=== PATIENT | female | born 1975 | race Caucasian/White ===

== ENCOUNTER 2018-08-31 18:56 | Emergency (ER) | payer BC ==
[~2018-08-31] VITALS: Ht 165.1 cm; Wt 90.0 kg
[~2018-08-31 18:56] MED LIST: ACETTAB3 OR; AMOXICILLIN875 MG OR; AUGMENTIN875TAB OR; CIPROFLOXACN500 MG PO; CITALOPRAM20 MG PO; CITALOPRAM40 MG PO; EPITOL200 MG OR; FIORICET OR; FLEXERIL OR; FLEXERIL10 MG PO; KETOROLAC60 MG/2 ML IJ; LORTAB5 PO; MEDDOSEPAK OR; MELOXICAM15 MG PO; NAPROSYN500 MG PO; NAPROXEN500 MG PO; NASONEX50 MCG/AC; PHENERGAN25 MG/ML IM; PHENTERMINE37.5 M1 OR; ROCEPHIN 1 GM1 GM PO; SILVADENE1 % EX; TORADOL IM; VENTOLIN HFA IN; ZPAK PO
[2018-08-31 19:45] LABS: HEMATOCRIT 35.6 % (37.0-47.0); IMMATURE GRANULOCYTES 0.3 % (0.0-5.0); MEAN CORPUSCULAR HGB 23.3 pG CALC (26.0-32.0); MEAN CORPUSCULAR HGB CONC 30.1 g/L CALC (32.0-36.0); NEUT# 4.84 thou/uL (2.00-7.15); RED BLOOD COUNT 4.59 mill/uL (4.20-5.60); RED CELL DISTRI WIDTH 15.9 % (11.5-15.5)
[2018-08-31 19:48] LABS: HEMOGLOBIN 10.7 g/dl (12.0-16.0); MEAN CELL VOLUME 77.6 fL CALC (80.0-100.0)
[2018-08-31 19:49] LABS: URINE BILIRUBIN - DIPSTICK NEGATIVE (NEGATIVE); URINE BLOOD DIPSTICK SMALL (NEGATIVE); URINE COLOR YELLOW; URINE GLUCOSE - DIPSTICK NEGATIVE (NEGATIVE); URINE KETONE NEGATIVE (NEGATIVE); URINE LEUK ESTERASE NEGATIVE (NEGATIVE); URINE NITRITE - DIPSTICK NEGATIVE (Negative); URINE PROTEIN - DIPSTICK NEGATIVE (NEG-TRACE); URINE UROBILINOGEN - DIPSTICK 0.2 E.U./dL (0.2)
[2018-08-31 19:51] LABS: COCAINE NEGATIVE (NEGATIVE); METHADONE NEGATIVE (NEGATIVE); TETRAHYDROCANNABIONOL NEGATIVE (NEGATIVE)
[2018-08-31 19:52] LABS: BARBITURATES NEGATIVE (NEGATIVE); OXCYCODONE NEGATIVE (NEGATIVE); TRICYLIC ANTIDEPRESSANTS NEGATIVE (NEGATIVE)
[2018-08-31 19:53] LABS: URINE SQUAMOUS EPITHELIAL CELL FEW EPI/hpf (0-FEW); URINE WBC 0-2 WBC/hpf (0-5)
[2018-08-31 20:04] LABS: ALBUMIN 4.6 g/dL (3.2-5.0); ALKALINE PHOSPHATASE 80 u/l (38-126); ANION GAP 15 (6-22 (CALC)); BILIRUBIN, TOTAL 0.4 mg/dL (0.0-1.4); BUN 16 mg/dL (7-17); BUN/CREATININE RATIO 27 (12-20 (CALC)); CARBON DIOXIDE 25 mmol/l (22-30); CHLORIDE 103 mmol/l (95-108); CREATININE 0.6 mg/dL (0.5-1.0); GFR > 60 ML/MIN (>=60 (CALC)); GFR FOR AFR.AMER. > 60 ML/MIN (>=60 (CALC)); SGOT/AST 42 u/l (14-36); SODIUM 140 mmol/l (137-146); TOTAL PROTEIN 8.3 g/dL (6.3-8.2)
[2018-08-31 20:07] LABS: POTASSIUM 3.4 mmol/l (3.5-5.1)
[2018-08-31 21:15] VITALS: BP 123/61
== END 2018-08-31 21:15 | disposition home or self-care (01) | DRG 305 ==
LOC: ED 18:56
PROVIDERS: Emergency Medicine
DX: I10 Essential (primary) hypertension (principal); R51 Headache; T46.5X6A Underdosing of other antihypertensive drugs, initial encounter; Z91.128 Patient's intentional underdosing of medication regimen for other reason

== ENCOUNTER 2018-10-07 13:07 | Emergency (ER) | payer OTHER ==
[~2018-10-07] VITALS: Ht 165.1 cm; Wt 90.9 kg
[~2018-10-07 13:07] MED LIST changes: +ASCORBIC ACID; +BUPROPION300 MG PO; +GABAPENTIN100 MG PO; +HAIR SKIN & NAI1 CHW PO; +LOSARTAN POTASS50 MG PO; +OMEPRAZOLE DR40 MG PO; +VITAMIN B12 GUMMY; +[UNRECOGNIZED DRUG - OTHER]; +[UNRECOGNIZED DRUG - OTHER]
[2018-10-07 13:56] LABS: HEMATOCRIT 37.2 % (37.0-47.0); HEMOGLOBIN 11.7 g/dl (12.0-16.0); IMMATURE GRANULOCYTES 0.7 % (0.0-5.0); MEAN CELL VOLUME 78.8 fL CALC (80.0-100.0); MEAN CORPUSCULAR HGB 24.8 pG CALC (26.0-32.0); MEAN CORPUSCULAR HGB CONC 31.5 g/L CALC (32.0-36.0); NEUT# 4.1 thou/uL (2.00-7.15); RED BLOOD COUNT 4.72 mill/uL (4.20-5.60); RED CELL DISTRI WIDTH 19.4 % (11.5-15.5)
[2018-10-07 14:02] LABS: ACT PARTIAL THROMBO TIME 23.4 SECONDS (20.0-32.5); ALBUMIN 4.5 g/dL (3.2-5.0); ALKALINE PHOSPHATASE 67 u/l (38-126); AMYLASE 44 u/l (30-110); ANION GAP 15 (6-22 (CALC)); BILIRUBIN, TOTAL 0.4 mg/dL (0.0-1.4); BUN 11 mg/dL (7-17); BUN/CREATININE RATIO 23 (12-20 (CALC)); CARBON DIOXIDE 26 mmol/l (22-30); CHLORIDE 104 mmol/l (95-108); CREATININE 0.5 mg/dL (0.5-1.0); D-DIMER 0.25 mg/L (0.19-0.60); GFR > 60 ML/MIN (>=60 (CALC)); GFR FOR AFR.AMER. > 60 ML/MIN (>=60 (CALC)); INTERNATIONAL NORMALIZED RATIO 0.9 RATIO (0.7-1.3); LIPASE 66 u/l (23-300); POTASSIUM 3.7 mmol/l (3.5-5.1); PROTHROMBIN TIME 9.7 SECONDS (9.0-12.5); SGOT/AST 45 u/l (14-36); SODIUM 141 mmol/l (137-146); TOTAL PROTEIN 7.7 g/dL (6.3-8.2)
[2018-10-07 14:13] LABS: MYOGLOBIN 16 ng/mL (0 - 62)
[2018-10-07 14:30] VITALS: BP 159/88
[2018-10-07] MEDS ORDERED: TORADOL PO (14:30)
== END 2018-10-07 14:33 | disposition home or self-care (01) | DRG 313 ==
LOC: ED 13:07
PROVIDERS: Family Medicine
DX: R07.89 Other chest pain (principal); I10 Essential (primary) hypertension

== ENCOUNTER 2018-10-20 06:43 | Day surgery (SDC) | payer OTHER ==
[~2018-10-20 06:43] MED LIST changes: +TORADOL PO; -[UNRECOGNIZED DRUG - OTHER]; +[UNRECOGNIZED DRUG - OTHER] PO
[2018-10-20 08:46] VITALS: BP 134/69
== END 2018-10-20 09:01 | disposition home or self-care (01) | DRG 812 ==
LOC: ENDO 06:43 → ORM 08:00 → ENDO 09:01 → ORM 09:45
PROVIDERS: ATTEND Surgery
PROC: 0DB48ZX Excision of Esophagogastric Junction, Via Natural or Artificial Opening Endoscopic, Diagnostic (ICD-10-PCS; principal; 2018-10-20)
PROC: 0DJD8ZZ Inspection of Lower Intestinal Tract, Via Natural or Artificial Opening Endoscopic (ICD-10-PCS; 2018-10-20)
DX: D64.9 Anemia, unspecified (principal); K29.70 Gastritis, unspecified, without bleeding; K21.0 Gastro-esophageal reflux disease with esophagitis; I10 Essential (primary) hypertension; Z80.0 Family history of malignant neoplasm of digestive organs

== ENCOUNTER 2019-10-18 17:02 | Observation (INO) | payer BC ==
[2019-10-18] VITALS (9 sets, daily range): BP systolic 96–155; BP diastolic 50–75
[~2019-10-18] VITALS: Ht 165.1 cm; Wt 93.9 kg
[2019-10-18 17:28] LABS: IMMATURE GRANULOCYTES 0.3 % (0.0-5.0); MEAN CORPUSCULAR HGB 28.1 pG CALC (26.0-32.0); MEAN CORPUSCULAR HGB CONC 32.1 g/dL CAL (32.0-36.0); NEUT# 3.72 thou/uL (2.00-7.15); RED BLOOD COUNT 4.91 mill/uL (4.20-5.60); RED CELL DISTRI WIDTH 12.7 % (11.5-15.5)
[2019-10-18 17:35] LABS: GFR > 60 ML/MIN (>=60 (CALC)); GFR FOR AFR.AMER. > 60 ML/MIN (>=60 (CALC))
[2019-10-18 17:49] LABS: ALBUMIN 4.8 g/dL (3.2-5.0); ALKALINE PHOSPHATASE 79 u/l (38-126); ANION GAP 14 (6-22 (CALC)); BILIRUBIN, TOTAL 0.5 mg/dL (0.0-1.4); BUN 15 mg/dL (7-17); BUN/CREATININE RATIO 27 (12-20 (CALC)); CARBON DIOXIDE 27 mmol/l (22-30); CHLORIDE 99 mmol/l (95-108); CREATININE 0.6 mg/dL (0.5-1.0); GFR > 60 ML/MIN (>=60 (CALC)); GFR FOR AFR.AMER. > 60 ML/MIN (>=60 (CALC)); HEMOGLOBIN 13.8 g/dl (12.0-16.0); MEAN CELL VOLUME 87.6 fL CALC (80.0-100.0); POTASSIUM 3.7 mmol/l (3.5-5.1); SGOT/AST 74 u/l (14-36); SODIUM 136 mmol/l (137-146)
[2019-10-18 17:50] LABS: ACT PARTIAL THROMBO TIME 22.5 SECONDS (20.0-32.5); PROTHROMBIN TIME 9.7 SECONDS (9.0-12.5)
[2019-10-18] MEDS ORDERED: AMITRIPTYLIN25 MG PO (18:03)
[2019-10-18] MEDS ORDERED: RESMETIROM PO (18:04)
[2019-10-18 18:20] LABS: URINE BILIRUBIN - DIPSTICK NEGATIVE (NEGATIVE); URINE BLOOD DIPSTICK SMALL (NEGATIVE); URINE COLOR YELLOW; URINE GLUCOSE - DIPSTICK NEGATIVE (NEGATIVE); URINE KETONE NEGATIVE (NEGATIVE); URINE NITRITE - DIPSTICK NEGATIVE (Negative); URINE PROTEIN - DIPSTICK NEGATIVE (NEG-TRACE); URINE SPECIFIC GRAVITY 1.025; URINE UROBILINOGEN - DIPSTICK 0.2 E.U./dL (0.2)
[2019-10-18 18:21] LABS: URINE LEUK ESTERASE SMALL (NEGATIVE)
[2019-10-18 18:31] LABS: URINE SQUAMOUS EPITHELIAL CELL FEW EPI/hpf (0-FEW)
[2019-10-19] VITALS (14 sets, daily range): BP systolic 90–141; BP diastolic 51–85
[2019-10-20 03:58] VITALS: BP 120/69
[2019-10-20 07:26] VITALS: BP 116/77
[2019-10-20 08:47] VITALS: BP 116/77
== END 2019-10-20 11:10 | disposition home or self-care (01) | DRG 69 ==
LOC: ED 17:02 → ED-I 17:20 → ED 17:34 → ED-I 17:35 → ICU 17:35 → MS2 10-19 13:00
PROVIDERS: Student in an Organized Health Care Education/Training Program; ADMIT Internal Medicine; ATTEND Internal Medicine
DX: G45.9 Transient cerebral ischemic attack, unspecified (principal); F43.9 Reaction to severe stress, unspecified; I10 Essential (primary) hypertension; G43.909 Migraine, unspecified, not intractable, without status migrainosus; K76.0 Fatty (change of) liver, not elsewhere classified; F32.9 Major depressive disorder, single episode, unspecified; Z79.899 Other long term (current) drug therapy; Z11.59 Encounter for screening for other viral diseases
CPT/HCPCS: G0378; J1650; Q9967

== ENCOUNTER 2020-04-20 07:44 | Emergency (ER) | payer BC ==
[~2020-04-20] VITALS: Ht 165.1 cm; Wt 94.0 kg
[~2020-04-20 07:44] MED LIST changes: +AMITRIPTYLIN25 MG PO; +RESMETIROM PO
[2020-04-20 09:04] LABS: HEMATOCRIT 41.9 % (37.0-47.0); HEMOGLOBIN 13.3 g/dl (12.0-16.0); IMMATURE GRANULOCYTES 0.4 % (0.0-5.0); MEAN CELL VOLUME 87.5 fL CALC (80.0-100.0); MEAN CORPUSCULAR HGB 27.8 pG CALC (26.0-32.0); MEAN CORPUSCULAR HGB CONC 31.7 g/dL CAL (32.0-36.0); NEUT# 4.06 thou/uL (2.00-7.15); RED BLOOD COUNT 4.79 mill/uL (4.20-5.60); RED CELL DISTRI WIDTH 13.3 % (11.5-15.5)
[2020-04-20 09:12] LABS: ANION GAP 14 (6-22 (CALC)); BUN 12 mg/dL (7-17); BUN/CREATININE RATIO 21 (12-20 (CALC)); CARBON DIOXIDE 29 mmol/l (22-30); CHLORIDE 100 mmol/l (95-108); CREATININE 0.6 mg/dL (0.5-1.0); GFR > 60 ML/MIN (>=60 (CALC)); GFR FOR AFR.AMER. > 60 ML/MIN (>=60 (CALC)); SODIUM 138 mmol/l (137-146)
[2020-04-20 09:22] LABS: URINE BILIRUBIN - DIPSTICK NEGATIVE (NEGATIVE); URINE BLOOD DIPSTICK TRACE-LYSED (NEGATIVE); URINE COLOR YELLOW; URINE GLUCOSE - DIPSTICK NEGATIVE (NEGATIVE); URINE KETONE NEGATIVE (NEGATIVE); URINE LEUK ESTERASE NEGATIVE (NEGATIVE); URINE NITRITE - DIPSTICK NEGATIVE (Negative); URINE PROTEIN - DIPSTICK NEGATIVE (NEG-TRACE); URINE UROBILINOGEN - DIPSTICK 0.2 E.U./dL (0.2)
[2020-04-20] MEDS ORDERED: WELLBUTRIN150 M2 PO (09:58)
[2020-04-20 10:47] VITALS: BP 137/79
== END 2020-04-20 10:51 | disposition home or self-care (01) | DRG 103 ==
LOC: ED 07:44
PROVIDERS: Family Medicine
DX: R51.9 Headache, unspecified (principal); I10 Essential (primary) hypertension; J45.909 Unspecified asthma, uncomplicated; F32.9 Major depressive disorder, single episode, unspecified; K76.0 Fatty (change of) liver, not elsewhere classified; Z20.822 Contact with and (suspected) exposure to COVID-19

== ENCOUNTER 2020-07-17 17:26 | Emergency (ER) | payer BC ==
[~2020-07-17 17:26] MED LIST changes: +WELLBUTRIN150 M2 PO
[2020-07-17] MEDS ORDERED: HYDROCHLOROTHIA50 MG PO (18:29)
[2020-07-17] MEDS ORDERED: ZPAK PO (19:03)
[2020-07-17 19:17] VITALS: BP 137/67
== END 2020-07-17 19:28 | disposition home or self-care (01) | DRG 153 ==
LOC: ED 17:26
DX: J06.9 Acute upper respiratory infection, unspecified (principal); I10 Essential (primary) hypertension; J45.909 Unspecified asthma, uncomplicated; F32.9 Major depressive disorder, single episode, unspecified; Z20.822 Contact with and (suspected) exposure to COVID-19; K76.0 Fatty (change of) liver, not elsewhere classified

== ENCOUNTER 2024-03-12 19:32 | Emergency (ER) | payer BC ==
[~2024-03-12] VITALS: Ht 165.1 cm; Wt 88.0 kg
[~2024-03-12 19:32] MED LIST changes: +HYDROCHLOROTHIA50 MG PO
[2024-03-12 20:47] VITALS: BP 180/81
[2024-03-12] MEDS ORDERED: DEXAMETHASONE SOD. PHOSPHATE 10 MG/ML VIAL IV ONE (21:05)
[2024-03-12] MEDS ORDERED: KETOROLAC TROMETHAMINE 30 MG/ML SDV IV ONE (21:05)
[2024-03-12] MEDS ORDERED: MOTRIN200 MG PO (21:22)
[2024-03-12 21:33] LABS: URINE BILIRUBIN - DIPSTICK Negative (NEGATIVE); URINE BLOOD DIPSTICK Trace-lysed (NEGATIVE); URINE GLUCOSE - DIPSTICK Negative (NEGATIVE); URINE KETONE Negative (NEGATIVE); URINE LEUK ESTERASE Negative (NEGATIVE); URINE NITRITE - DIPSTICK Negative (Negative); URINE PH 5.5 (4.5-8.0); URINE PROTEIN - DIPSTICK Negative (NEG-TRACE); URINE UROBILINOGEN - DIPSTICK 0.2 E.U./dL (0.2)
[2024-03-12 21:35] LABS: BASO% 0.4 % (0-3); EOS% 2.5 % (0-8); HEMATOCRIT 42.7 % (37.0-47.0); HEMOGLOBIN 13.9 g/dl (12.0-16.0); IMMATURE GRANULOCYTES 0.2 % (0.0-5.0); LYMPH% 30.5 % (15-41); MEAN CELL VOLUME 88.6 fL CALC (80.0-100.0); MEAN CORPUSCULAR HGB 28.8 pG CALC (26.0-32.0); MEAN CORPUSCULAR HGB CONC 32.6 g/dL CAL (32.0-36.0); MONO% 5.8 % (2-13); NEUT# 7.27 thou/uL (2.00-7.15); NEUT% 60.6 % (42-76); RED BLOOD COUNT 4.82 mill/uL (4.20-5.60); RED CELL DISTRI WIDTH 12.5 % (11.5-15.5)
[2024-03-12 21:35] LABS: URINE COLOR Yellow
[2024-03-12 21:44] LABS: ALBUMIN 4.6 g/dL (3.2-5.0); BILIRUBIN, TOTAL 0.5 mg/dL (0.02-1.3); CREATININE 0.5 mg/dL (0.5-1.0); POTASSIUM 4.1 mmol/l (3.5-5.1)
[2024-03-12] MEDS ORDERED: BACLOFEN 10 MG/TAB PO ONE (22:00)
[2024-03-12] MEDS ORDERED: ONDANSETRON HCl 4 MG/2 ML SDV IV ONE (22:00)
[2024-03-12] MEDS ORDERED: HYDROmorphone HCL 2 MG/AMP IV ONE (22:00)
[2024-03-12] MEDS ORDERED: BACLOFEN10 MG PO (22:41)
[2024-03-12] MEDS ORDERED: EC-NAPROXEN500 MG PO (22:41)
[2024-03-12] MEDS ORDERED: PERCOCET 5/325M1 TAB PO (22:41)
[2024-03-12] MEDS ORDERED: DECADRON4 MG PO (22:41)
[2024-03-12 22:45] VITALS: BP 152/80
[2024-03-12 22:50] VITALS: BP 152/80
== END 2024-03-12 22:50 | disposition home or self-care (01) | DRG 552 ==
LOC: ED 19:32
PROVIDERS: Family Medicine
DX: M51.86 Other intervertebral disc disorders, lumbar region (principal); M48.061 Spinal stenosis, lumbar region without neurogenic claudication; I10 Essential (primary) hypertension; J45.909 Unspecified asthma, uncomplicated; F32.A Depression, unspecified; K76.0 Fatty (change of) liver, not elsewhere classified; K21.9 Gastro-esophageal reflux disease without esophagitis
CPT/HCPCS: J1100; J1171; J2405